=== PATIENT | female | born 2000 | race Caucasian/White ===

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

== ENCOUNTER 2020-12-08 00:14 | Emergency (ER) | payer BC ==
--- NOTE | 2020-12-08 02:59 | EDM.PDOC ---
ED HPI GENERAL MEDICAL PROBLEM - General Chief Complaint: Eye Problems Stated Complaint: VISION ISSUES/BLACKING OUT Time Seen by Provider: 12/08/20 02:43 Source of Information: Reports: Patient, Other (Fianc) History Limitations: Reports: No Limitations - History of Present Illness INITIAL COMMENTS - FREE TEXT/NARRATIVE: Ms. Trevizo is a very pleasant 20-year-old woman who now presents the ED stating that she was getting out of a truck around 23:20 this evening, when her vision in both eyes became completely black, lasting about 15 seconds. Since then, she has had about 10 more episodes, each lasting less than 10 seconds, with the most recent event occurring around 01:20. She states that she feels warm when these events occur, but she denies having any pain, headache, or lightheadedness. No associated chest pain, palpitations, dyspnea, or nausea. No prior similar symptoms. The patient states that she had a decreased oral intake yesterday, 12/07/2020, due to a sore throat, subjective fever, generalized body aches, and a headache that she has been experiencing since , 12/05/2020. She states that she tested negative for the SARS-CoV-2 virus on 12/06/2020. Here in the ED this morning, the patient's initial BP is found to be mildly elevated at 141/102 with tachycardia of 115 bpm. She is afebrile, saturating 99% on room air. She appears to be comfortable, in no acute distress. Prior to 12/05/2020, the patient denies having a recent fever, chills, sore throat, ear pain, nasal or sinus congestion, cough, dyspnea, chest pain, palp itations, nausea, vomiting, constipation, diarrhea, abdominal pain, urinary symptoms, recent weight gain or weight loss, recent bloody bowel movements or black bowel movements, recent joint aches, headaches, or rashes. The patient does not have a PCP. Her [facility] Administrator is Dr. Archana Batista. She has not received a COVID vaccination. 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 - Related Data Allergies Allergy/AdvReac Type Severity Reaction Status Date / Time amoxicillin Allergy Rash Verified 12/08/20 01:48 Past Medical History [employer]AL[employer]ER History: Reports: Spontaneous Psychiatric History: Reports: Anxiety (untreated) Endocrine/Metabolic History: Reports: Obesity/BMI 30+ - Past Surgical History Female Surgical History: Reports: Section (x 1) Social & Family History - Tobacco Use Tobacco Use Status *Q: Current Every Day Tobacco User Years of Tobacco use: 3 Packs/Tins Daily: 0.3 Tobacco Use Comment: Started smoking 2018 - Caffeine Use Caffeine Use: Reports: Coffee, Energy Drinks, Soda, Tea - Alcohol Use Alcohol Use History: Yes Alcohol Use Frequency: Socially - Recreational Drug Use Recreational Drug Use: No - Living Situation & Occupation Living situation: Reports: Single, with Significant Other (Fianc), with Family (Daughter) Occupation: Employed ([employer] in [place]) ED ROS GENERAL - Review of Systems Review Of Systems: Comprehensive ROS is negative, except as noted in HPI. ED EXAM, GENERAL - Physical Exam Exam: See Below Exam Limited By: No Limitations General Appearance: Alert, WD/WN, No Apparent Distress Eye Exam: Bilateral Eye: EOMI, Normal Inspection, PERRL Ears: Normal External Exam, Normal Canal, Hearing Grossly Normal, Normal TMs Nose: Normal Inspection, Normal Mucosa, No Blood Throat/Mouth: Normal Inspection, Normal Lips, Normal Teeth, Normal Gums, Normal Voice, No Airway Compromise, Other (Erythematous oropharynx. Anatomically large tonsils, although no exudates.) Head: Atraumatic, Normocephalic Neck: Normal Inspection, Supple, Non-Tender, Full Range of Motion. No: Lymphadenopathy (L), Lymphadenopathy (R) Respiratory/Chest: No Respiratory Distress, Lungs Clear, Normal Breath Sounds, No Accessory Muscle Use Cardiovascular: Normal Peripheral Pulses, Regular Rate, Rhythm, No Edema, No Gallop, No JVD, No Murmur, No Rub Peripheral Pulses: 3+: Radial (L), Radial (R) GI/Abdominal: Normal Bowel Sounds, Soft, Non-Tender, No Organomegaly, No Dis tention, No Abnormal Bruit, No Mass Back Exam: Normal Inspection, Full Range of Motion, NT Extremities: Normal Inspection, Normal Range of Motion, No Pedal Edema, Normal Capillary Refill Neurological: Alert, Oriented, CN II-XII Intact, Normal Cognition, No Motor/Sensory Deficits Psychiatric: Normal Affect Skin Exam: Warm, Dry, Intact, Normal Color, No Rash Course - Vital Signs Last Recorded V/S: Last Vital Signs Temp 36.1 C 12/08/20 01:47 Pulse 115 H 12/08/20 01:47 Resp 18 12/08/20 01:47 BP 141/102 H 12/08/20 01:47 Pulse Ox 99 12/08/20 01:47 Orthostatic Blood Pressure [ 118/86 Standing] Orthostatic Blood Pressure [ 119/87 Supine] - Orders/Labs/Meds Labs: Laboratory Tests 12/08/20 12/08/20 12/08/20 Range/Units 02:50 03:12 03:12 WBC 7.77 (3.98-10.04) K/mm3 RBC 4.54 (3.98-5.22) M/mm3 Hgb 13.9 D (11.2-15.7) gm/dl Hct 40.6 (34.1-44.9) % MCV 89.4 D (79.4-94.8) fl MCH 30.6 (25.6-32.2) pg MCHC 34.2 (32.2-35.5) g/dl RDW Std Deviation 42.9 (36.4-46.3) fL Plt Count 243 (182-369) K/mm3 MPV 9.9 (9.4-12.3) fl Neutrophils % (Manual) 73 H (40-60) % Band Neutrophils % 1 (0-10) % Lymphocytes % (Manual) 19 L (20-40) % Atypical Lymphs % 0 % Monocytes % (Manual) 7 (2-10) % Eosinophils % (Manual) 0 L (0.7-5.8) % Basophils % (Manual) 0 L (0.1-1.2) Platelet Estimate Adequate RBC Morph Comment Normal Sodium 141 (136-145) mEq/L Potassium 3.6 (3.5-5.1) mEq/L Chloride 105 (98-107) mEq/L Carbon Dioxide 26 (21-32) mEq/L Anion Gap 13.6 (5-15) BUN 8 (7-18) mg/dL Creatinine 0.7 (0.55-1.02) mg/dL Est Cr Clr Drug Dosing 95.93 mL/min Estimated GFR (MDRD) > 60 (>60) mL/min BUN/Creatinine Ratio 11.4 L (14-18) Glucose 113 H (70-99) mg/dL Calcium 8.6 (8.5-10.1) mg/dL Magnesium 2.1 (1.8-2.4) mg/dL Total Bilirubin 0.4 (0.2-1.0) mg/dL AST 21 (15-37) U/L ALT 27 (14-59) U/L Alkaline Phosphatase 54 (46-116) U/L C-Reactive Protein 10.5 H* (<1.0) mg/dL Total Protein 7.5 (6.4-8.2) g/dl Albumin 3.6 (3.4-5.0) g/dl Globulin 3.9 gm/dL Albumin/Globulin Ratio 0.9 L (1-2) SARS-CoV-2 RNA ([facility]) (NEGATIVE) Group A Strep (PCR) Not detected (NOT DETECT) 12/08/20 Range/Units 03:23 WBC (3.98-10.04) K/mm3 RBC (3.98-5.22) M/mm3 Hgb (11.2-15.7) gm/dl Hct (34.1-44.9) % MCV (79.4-94.8) fl MCH (25.6-32.2) pg MCHC (32.2-35.5) g/dl RDW Std Deviation (36.4-46.3) fL Plt Count (182-369) K/mm3 MPV (9.4-12.3) fl Neutrophils % (Manual) (40-60) % Band Neutrophils % (0-10) % Lymphocytes % (Manual) (20-40) % Atypical Lymphs % % Monocytes % (Manual) (2-10) % Eosinophils % (Manual) (0.7-5.8) % Basophils % (Manual) (0.1-1.2) Platelet Estimate RBC Morph Comment Sodium (136-145) mEq/L Potassium (3.5-5.1) mEq/L Chloride (98-107) mEq/L Carbon Dioxide (21-32) mEq/L Anion Gap (5-15) BUN (7-18) mg/dL Creatinine (0.55-1.02) mg/dL Est Cr Clr Drug Dosing mL/min Estimated GFR (MDRD) (>60) mL/min BUN/Creatinine Ratio (14-18) Glucose (70-99) mg/dL Calcium (8.5-10.1) mg/dL Magnesium (1.8-2.4) mg/dL Total Bilirubin (0.2-1.0) mg/dL AST (15-37) U/L ALT (14-59) U/L Alkaline Phosphatase (46-116) U/L C-Reactive Protein (<1.0) mg/dL Total Protein (6.4-8.2) g/dl Albumin (3.4-5.0) g/dl Globulin gm/dL Albumin/Globulin Ratio (1-2) SARS-CoV-2 RNA ([facility]) Negative (NEGATIVE) Group A Strep (PCR) (NOT DETECT) - Re-Assessments/Exams Free Text/Narrative Re-Assessment/Exam: 12/08/20 02:57 I collected a group A strep by PCR swab. I have ordered orthostatics, along with several blood tests and a swab for the SARS-CoV-2 virus and influenza A + B viruses. 12/08/20 03:55 The patient is not orthostatic. 12/08/20 04:42 The patient's CBC is unremarkable. Her CMP is remarkable for slight hyperglycemia of 113, with the remainder of her CMP being unremarkable. Her magnesium level is within normal limits at 2.1. Her CRP is elevated at 10.5. Her group A strep by PCR swab is negative. Her swab for the SARS-CoV-2 virus is negative. Her swab for influenza A + B viruses is negative. 12/08/20 04:47 Test results discussed with the patient and her fianc. As above, the elevated CRP suggests either an infectious process, vasculitis, or cancer. Because the remainder of her work-up is unremarkable, I suspect that she is suffering from a viral illness. I recommended that she stay adequately hydrated. If her sympt oms recur, she will require further evaluation, therefore I will refer her to the clinic so that she can establish a PCP. Departure - Departure Time of Disposition: 04:48 Disposition: Home, Self-Care 01 Condition: Good Clinical Impression: Acute loss of vision - Discharge Information *PRESCRIPTION DRUG MONITORING PROGRAM REVIEWED*: Not Applicable *COPY OF PRESCRIPTION DRUG MONITORING REPORT IN PATIENT LACY: Not Applicable Instructions: Visual Disturbances Referrals: PCP,None [Primary Care Provider] - Lianna Javed NP [Nurse Practitioner] - Archana Batista MD [Physician] - Forms: ED Department Discharge Additional Instructions: You were seen in the emergency room after suffering repeated episodes of sudden loss of vision. Work-up in the ER included positional blood pressure checks, several blood tests, a group A strep by PCR swab, and swabs for the SARS-CoV-2 virus and influenza A + B viruses. Your CRP, a marker of inflammation, returned elevated at 10.5, indicating that you may have an infection, vasculitis, or cancer, however, it is very nonspecific. The remainder of your tests were completely normal. There is no sign of an infection. You are not dehydrated. No electrolyte abnormalities were found. The cause of your symptoms is not known. If they recur, further evaluation will be needed. In that case, please follow- up with Lianna Javed NP, or one of the other providers in the clinic. If any other problems, please do not hesitate to return to the ER. Sepsis Event Note (ED) - Evaluation Sepsis Screening Result: No Definite Risk
== END 2020-12-08 04:56 | disposition home or self-care (01) ==
LOC: JD.ED 00:14
DX: H54.7 Unspecified visual loss (principal); F17.210 Nicotine dependence, cigarettes, uncomplicated; E66.9 Obesity, unspecified; Z88.0 Allergy status to penicillin; Z20.822 Contact with and (suspected) exposure to COVID-19; Z68.35 Body mass index [BMI] 35.0-35.9, adult
CPT/HCPCS: 36415; 80053; 83735; 85007; 85027; 86140; 87651-QW; 87804; 99284; U0002

== ENCOUNTER 2021-06-07 10:33 | Emergency (ER) | payer OTHER, BC | END 2021-06-07 12:01 | disposition home or self-care (01) | LOC: JD.ED 10:33 | DX: S93.401A Sprain of unspecified ligament of right ankle, initial encounter (principal); E66.9 Obesity, unspecified; Z68.34 Body mass index [BMI] 34.0-34.9, adult; Z88.0 Allergy status to penicillin; Z72.0 Tobacco use; V89.2XXA Person injured in unspecified motor-vehicle accident, traffic, initial encounter | CPT/HCPCS: 73610-26-RT; 73610-RT; 99283; 99284-25 ==

== ENCOUNTER 2022-02-10 13:46 | Inpatient (IN) | payer BC, OTHER ==
[~2022-02-10 13:46] MED LIST: Lidocaine 1% 4 ML ONE; Propofol 200 MG/20 ML SDV ONE; Rocuronium 50 MG/5 ML Vial ONE; fentaNYL 100 MCG/2 ML SDV ONE
[2022-02-10] MEDS ORDERED: Midazolam 1 MG/ML 2 ML SDV ONE ×2 (13:52→16:12)
[2022-02-10] MEDS ORDERED: Etomidate 2 MG/ML 20 ML SDV IVPUSH ONE (14:03)
[2022-02-10] MEDS ORDERED: ePHEDrine 50 MG/ML SDV ONE (14:30)
[2022-02-10] MEDS ORDERED: Tranexamic Acid 1,000 MG/10 ML Vial ONE (14:38)
[2022-02-10] MEDS ORDERED: ceFAZolin 2 GM Vial ONE (14:41)
[2022-02-10] MEDS ORDERED: Dexamethasone 4 MG/ML 5 ML MDV ONE (14:41)
[2022-02-10] MEDS ORDERED: Sugammadex Sodium 200 MG/2 ML VIAL ONE (14:52)
[2022-02-10] MEDS ORDERED: Lactated Ringers 1,000 ML ONE ×3 (14:55→15:27)
[2022-02-10] MEDS ORDERED: Phenylephrine 1% 10 MG/ML SDV ONE (14:55)
[2022-02-10] MEDS ORDERED: Sodium Chloride 0.9% 1,000 ML ONE (14:56)
[2022-02-10] MEDS ORDERED: fentaNYL 100 MCG/2 ML SDV ONE (15:10)
[2022-02-10] MEDS ORDERED: Dexmedetomidine 200 MCG/2 ML SDV ONE (15:11)
[2022-02-10] MEDS ORDERED: Ropivacaine 0.5% 5 MG/ML 30 ML SDV ONE (15:13)
[2022-02-10] MEDS ORDERED: Ondansetron 4 MG/2 ML SDV ONE (15:26)
[2022-02-10] MEDS ORDERED: HYDROmorphone 0.5 MG/0.5 ML Syringe ONE (15:49)
[2022-02-10] MEDS ORDERED: Midazolam 1 MG/ML 2 ML SDV IVPUSH ONE (16:05)
[2022-02-10] MEDS ORDERED: HYDROmorphone 0.5 MG/0.5 ML Syringe IVPUSH PRN (16:14)
[2022-02-10] MEDS ORDERED: fentaNYL 100 MCG/2 ML SDV IVPUSH PRN (16:14)
[2022-02-10] MEDS ORDERED: Ondansetron 4 MG/2 ML SDV IVPUSH PRN ×2 (16:14→16:56)
[2022-02-10] MEDS ORDERED: Morphine 4 MG/ML Syringe IVPUSH PRN (16:55)
[2022-02-10] MEDS ORDERED: Acetaminophen/oxyCODONE 325-5 MG Tab PO PRN (16:56)
[2022-02-10] MEDS ORDERED: Lactated Ringers 1,000 ML IV SCH (17:00)
[2022-02-10] MEDS ORDERED: LORazepam 2 MG/ML SDV IVPUSH PRN (17:16)
[2022-02-10] MEDS: Acetaminophen/oxyCODONE 325-5 MG Tab PO PRN (23:26)
[2022-02-11] MEDS: Acetaminophen/oxyCODONE 325-5 MG Tab PO PRN (03:47)
[2022-02-11] MEDS ORDERED: LORazepam 0.5 MG Tab PO PRN (06:44)
[2022-02-11] MEDS: Ketorolac 30 MG/ML SDV IVPUSH SCH ×3 (07:39→20:13)
[2022-02-11] MEDS: Acetaminophen 325 MG Tab PO PRN ×3 (09:53→21:40)
[2022-02-11] MEDS ORDERED: Simethicone 80 MG Tab.Chew PO PRN (20:07)
[2022-02-12] MEDS ORDERED: Ibuprofen 600 MG Tab PO PRN (02:00)
[2022-02-12] MEDS: Acetaminophen 325 MG Tab PO PRN (08:43)
== END 2022-02-12 09:15 | disposition home or self-care (01) | DRG 564 ==
LOC: JD.OB 13:46
PROVIDERS: ADMIT Obstetrics & Gynecology; ATTEND Obstetrics & Gynecology
PROC: 0UT90ZZ Resection of Uterus, Open Approach (ICD-10-PCS; principal; 2022-02-10)
PROC: 0UB70ZZ Excision of Bilateral Fallopian Tubes, Open Approach (ICD-10-PCS; 2022-02-10)
DX: O02.1 Missed abortion (principal); O99.211 Obesity complicating pregnancy, first trimester; O99.331 Smoking (tobacco) complicating pregnancy, first trimester; F17.210 Nicotine dependence, cigarettes, uncomplicated; Z90.710 Acquired absence of both cervix and uterus; Z88.1 Allergy status to other antibiotic agents; Z3A.01 Less than 8 weeks gestation of pregnancy
CPT/HCPCS: 36415; 36430; 80053; 85025; 85610; 85730; 86850; 86900; 86901; 86922; A9270-GY; J0690; J1100; J1170; J1885; J2060; J2250; J2270; J2370; J2405; J2704; J2795; J3010; J3490; J7030; J7120; P9016